=== PATIENT | male | born 1980 | race Caucasian/White ===

== ENCOUNTER 2022-02-08 15:34 | Emergency (ER) | payer OTHER ==
--- OUTSIDE RECORDS SUMMARY | 2022-02-08 15:39 | XMS REPORT | Continuity of Care Document ---
:1980 Author Organization [facility] t Address [address] [place] [address] Care Team Providers Name Role Phone Pcp-None Primary Care Physician Unavailable SANDHYA_ Attending Clinician Unavailable Badcristian Attending Clinician Unavailable Trish James Attending Clinician Unavailable SANDHYA_ Admitting Clinician Unavailable Badar Admitting Clinician Unavailable Payers Payer Name Policy Type Policy Number Effective Date Expiration Date S ource Problems This patient has no known problems. Allergies, Adverse Reactions, Alerts Allergy Allergy Status Severity Reaction(s) Onset Inactive Treating Comm ents Source Name Type Date Date Clinician No Known DA Active U [facility] 02-04 [facility] 00:00: e 00 [facility] Medications This patient has no known medications. Procedures This patient has no known procedures. Encounters Start End Encounter Admission Attending Care Care Encounter Source Date/Time Date/Time Type Type Clinicians Facility Department ID 2020-06-20 Inpatient [facility] [id number] [facility] 04:41:00 [id number] [facility] 2021-11-24 2021-11-24 Outpatient [facility]_ [facility] 549 [id number] [place] 01:56:00 01:56:00 PAT_ [id number] [facility] Results Test Description Test Time Test Comments Results Result [facility] Comments - CT ABD PELVIS 2020-06-20 W/CONT 06:44:00 [facility])Name: LISETH CELAYA : 1980 Sex: M Name: LISETH CELAYA [facility] : 1980 Age/S: 39 / M [address] [facility] Unit #: [id number] [place]: [place] [address] Phys: JibasilMookie Natacha DO Acct: [id number] Dis Date: Status: REG ER PHONE #: [phone] Exam Date: 06/20/202010 FAX #: [phone] Reason: diffuse abd pain EXAMS: CPT CODE: [id number] CT ABD PELVIS W/CONT 73349 CT abdomen and pelvis with IV contrast. Indication: Constipation Location: R16 Comparison: None Technique: CT images of the abdomen and pelvis were obtained from the diaphragm to the pubic symphysis after the administration of intravenous contrast contrast. Coronal reformats are provided. One or more of the following dose reduction techniques were used: Automated exposure control, adjustment of the mA and/or kV according to patient size, and/or utilization of iterative reconstruction technique. Findings: Lungs bases: Unremarkable. Liver: Unremarkable. Gallbladder: Unremarkable. Pancreas: Unremarkable. Spleen: Unremarkable. Adrenal glands: Unremarkable. Kidneys: Unremarkable. Bowel: No bowel obstruction. The appendix is unremarkable.. Constipation is noted with irregular thickening of the rectum, multiple perirectal nodes and presacral nodes are seen measuring up to 1.1 cm. Recommend further evaluation with colonoscopy or PET/CT to exclude the presence of possible neoplasm Peritoneum: No ascites. No free air Skeletal: No acute fracture.. Impression: Constipation is noted with irregular thickening of the rectum, multiple perirectal nodes and presacral nodes are seen measuring up to 1.1 cm. Recommend further evaluation with colonoscopy or PET/CT to exclude the presence of possible neoplasm Additional findings as detailed above PAGE 1 Signed Report (CONTINUED) Name[facility] 1980 Age/S: 39 / M [facility] Unit #: [id number] Loc: [place] [address] Phys: Mookie Santo DO Acct: [id number] Dis Date: Status: REG ER PHONE #: [phone] Exam Date: 06/20/2020 0610 FAX #: [phone] Reason: diffuse abd pain EXAMS: CPT CODE: [id number] CT ABD PELVIS W/CONT 88814 <Continued> at 0644 Reported and signed by: Charissa Eagle M.D. CC: Mookie Santo DO Technologist:MAGAN YANEZ CTDI: DLP: Trnscb Date/Time: 06/20/2020 (0644) [email or web address] Orig Print D/T: S: 06/20/2020 (0647) PAGE 2 Signed Report CBC W/O DIFF 2020-06-20 06:08:00 Test Item Value Reference Range Interpretation Comme nts WHITE BLOOD CELL (test code = WBC) 6.1 K/mm3 4.5-12.5 N RED BLOOD CELL (test code = RBC) 4.52 mill/mm3 4.0-5.8 N HEMOGLOBIN (test code = HGB) 13.6 gram/dL 13.0-17.5 N HEMATOCRIT (test code = HCT) 39.9 % 42.0-52.0 L MEAN CELL VOLUME (test code = MCV) 88.3 fL 80-98 N MEAN CELL HGB (test code = MCH) 30.1 picogram 27.0-33.0 N MEAN CELL HGB CONCETRATION (test code = MCHC) 34.1 gram/dL 33.0-36. 0 N RED CELL DISTRIBUTION WIDTH (test code = RDW) 13.3 % 11.6-16. 2 N PLATELET COUNT (test code = PLT) 337 K/mm3 150-450 N MEAN PLATELET VOLUME (test code = MPV) 9.7 fL 6.7-11.0 N [id number] 06:08:00 Test Item Value Reference Range Interpretation Comments LIPASE (test code = LIP) 62 U/L 73.0-393.0 L BASIC METABOLIC [id number] 06:08:00 Test Item Value Reference Range Interpretation Comments SODIUM (test code = 138 mmol/L 136-145 N NA) POTASSIUM (test code 3.7 mmol/L 3.5-5.1 N = K) CHLORIDE (test code = 103.0 mmol/L 98-107 N CL) CARBON DIOXIDE (test 29.0 mmol/L 21-32 N code = CO2) ANION GAP (test code 9.7 10-20 L = GAP) GLUCOSE (test code = 88 mg/dL 74-106 N GLU) BLOOD UREA NITROGEN 11 mg/dL 7-18 N (test code = BUN) GLOMERULAR FILTRATION > 60 mL/min >=60 Estima kristina GFR by RATE (test code = using Jose fied MDRD GFR) formula.Chronic kidney disease is defined as eith er kidney damageor GFR <60 mL/min/1.73 m2 for >3 months. CREATININE (test code 0.90 mg/dL 0.7-1.3 N = CREAT) BUN/CREATININE RATIO 12.2 10-20 N (test code = BUN/CREA) CALCIUM (test code = 8.9 mg/dL 8.5-10.1 N CA) HEPATIC FUNCTION [id number] 06:08:00 Test Item Value Reference Range Interpretation Comments TOTAL PROTEIN (test 7.0 gram/dL 6.4-8.2 N code = PROT) ALBUMIN (test code = 3.7 g/dL 3.4-5.0 N ALB) GLOBULIN (test code = 3.3 gram/dL 2.7-4.2 N GLOB) ALBUMIN/GLOBULIN RATIO 1.1 0.75-1.50 N (test code = A/G) BILIRUBIN TOTAL (test 0.70 mg/dL 0.0-1.0 N code = BILT) BILIRUBIN DIRECT (test 0.23 mg/dL 0.0-0.20 H code = BILD) SGOT/AST (test code = 16 IUnit/L 15-37 N AST) SGPT/ALT (test code = 17 IUnit/L 12-78 N ALT) ALKALINE PHOSPHATASE 83 IUnit/L 45-117 N Note change in TOTAL (test code = reference range due ALKP) to change in reagent. BASIC METABOLIC [id number] 05:57:00 Test Item Value Reference Range Interpretation Comments SODIUM (test code = NA) 138 mmol/L 136-145 N POTASSIUM (test code = K) 3.7 mmol/L 3.5-5.1 N CHLORIDE (test code = CL) 103.0 mmol/L 98-107 N CARBON DIOXIDE (test code = CO2) mmol/L 21-32 ANION GAP (test code = GAP) 10-20 GLUCOSE (test code = GLU) mg/dL 74-106 BLOOD UREA NITROGEN (test code = mg/dL 7-18 BUN) GLOMERULAR FILTRATION RATE (test mL/min >=60 code = GFR) CREATININE (test code = CREAT) mg/dL 0.7-1.3 BUN/CREATININE RATIO (test code 1020 = BUN/CREA) CALCIUM (test code = CA) mg/dL 8.5-10.1 HEPATIC FUNCTION [id number] 05:57:00 Test Item Value Reference Range Interpretation Comments TOTAL PROTEIN (test code = PROT) gram/dL 6.4-8.2 ALBUMIN (test code = ALB) g/dL 3.4-5.0 GLOBULIN (test code = GLOB) gram/dL 2.7-4.2 ALBUMIN/GLOBULIN RATIO (test code = 0.75-1.50 A/G) BILIRUBIN TOTAL (test code = BILT) mg/dL 0.0-1.0 BILIRUBIN DIRECT (test code = BILD) mg/dL 0.0-0.20 SGOT/AST (test code = AST) IUnit/L 15-37 SGPT/ALT (test code = ALT) IUnit/L 12-78 ALKALINE PHOSPHATASE TOTAL (test IUnit/L 45-117 code = ALKP) [id number] 05:57:00 Test Item Value Reference Range Interpretation Comments LIPASE (test code = LIP) U/L 73.0-393.0 EKG ED Electrocardiogram [facility] [address] [place] [address] Patient Name: Liseth Celaya Medical Record#: [id number] Address: [address] [place] [address] City/State/Zip: [place] [address]: Jono Jones MD Insurance: Self Pay /Age/Sex: 1980/41/M Admit/Reg Date: 09/17/[address]: Jono Jones MD Location: [address] PCP: Md SUNITA Magdaleno Date of Service: 09/17/21 Order (s): EKG ED Electrocardiogram CPT Code: 01880 Report Number: [id number] for Exam: SOB Sinus rhythm Low voltage, precordial leads Summary: Otherwise Normal ECG R06.02 Dictated By: Emerson Qeuzada MD 09/17/21 1808 Signed By: Emerson Quezada MD09/18/21 1741 TD/TT: 09/17/21 180 Tech: [facility] cc: [facility]; PCPNO* Md SUNITA Magdaleno; Jono Jones MD EKG ED Electrocardiogram [address] [id number] Patient Name: Liseth Celaya Medical Record#: [id number] Address: Unknown City/State/Zip: [place] [address]: Jono Jones MD Insurance: Self Pay /Age/Sex: 1980/41/M Admit/Reg Date: 09/17/[address]: Alirio James MD Location:[place] [address] PCP: Md SUNITA Magdaleno Date of Service: 09/17/21 Order (s): EKG ED Electrocardiogram CPT Code: 52723 Report Number: [id number] Reason for Exam: sob Sinus tachycardia Anteroseptal infarct, age indeterminate Summary: Abnormal ECG R00.0 Dictated By: Emerson Quezada MD 09/17/21 0813 Signed By: Emerson Quezada MD 09/17/21 1355 TD/TT: 09/17/21 0813 Tech: [id number] cc: PCPNO; [email or web address]* Alirio James MD; Pcp-Md SUNITA Angulo XR chest 1V [facility] [address] [place] [address] Patient Name: Liseth Celaya Medical Record#: [id number] Address: City/State/Zip: Attending Dr: Alirio James MD Phone: Insurance: Self Pay /Age/Sex: 1980/41/M Admit/Reg Date: 09/17/[address]: Alirio James MD Location: [facility]/ PCP: Date of Service: 09/17/21 Order (s): XR chest 1V CPT Code: 95149 Report Number: [id number] Reason for Exam:Shortness of Breath LOCATION: R16 CHEST 1 VIEW INDICATION: Dyspnea COMPARISON: None FINDINGS: Large patchy airspace infiltrates seen throughout the left lung. The right lung is clear. No pleural effusion or pneumothorax. The cardiomediastinal silhouette is unremarkable. The bony thorax is intact. IMPRESSION: Extensive airspace infiltrates throughout left lung. Initial consideration is for unilateral pneumonia. Cannot excl ude other underlying process. Consider CT when feasible. Electronically signed by: Alanna Garland MD 09/17/2021 7:50 AM [facility] Dictated By: Alanna Olmos MD 09/17/2140 Signed By: Alanna Olmos MD 09/17/21 0740 TD/TT: 09/17/21 0740 Tech: [id number] cc: [email or web address]* Alirio James MD
[2022-02-08] MEDS ORDERED: ACETAMINOPHEN 500 MG TAB ONE (16:26)
--- NOTE | 2022-02-08 16:40 | RAD REPORT ---
EXAM DESCRIPTION: RAD - Chest Pa And Lat (2 Views) - 02/08/2022 4:34 pm CLINICAL HISTORY: COUGH Chest pain. COMPARISON: No comparisons FINDINGS: The lungs are grossly clear. The heart is normal in size. No displaced fractures. IMPRESSION: No acute or concerning finding suspected.
--- NOTE | 2022-02-08 18:10 | ER ---
Nurse's Notes [facility] Name: Irwin Valencia Jr Age: 41 yrs Sex: Male : 1980 Arrival Date: 02/08/2022 Time: 15:38 Bed Waiting Private MD: Diagnosis: Cutaneous abscess of head [any part, except face]-scalp;Acute upper respiratory infection, unspecified Presentation: 02/08 16:09 Chief complaint: Patient states: cough, congestion, runny nose, sneezing and sore vg1 throat x4 days. Also states has two abscesses on the back of head and causing a headache. Coronavirus screen: Vaccine status: Patient reports receiving the 2nd dose of the covid vaccine. Client denies travel out of the [place] in the last 14 days. Ebola Screen: Patient denies exposure to infectious person. Patient denies travel to an Ebola-affected area in the 21 days before illness onset. Initial Sepsis Screen: Does the patient meet any 2 criteria? No. Patient's initial sepsis screen is negative. Does the patient have a suspected source of infection? No. Patient's initial sepsis screen is negative. Risk Assessment: Do you want to hurt yourself or someone else? Patient reports no desire to harm self or others. Onset of symptoms was February 04, 2022. 16:09 Method Of Arrival: Ambulatory vg1 16:09 Acuity: MADELINE 4 vg1 Triage Assessment: 16:13 General: Appears uncomfortable, Behavior is calm, cooperative. Pain: Complains of pain vg1 in back and abdomen and head Pain currently is 10 out of 10 on a pain scale. Respiratory: Reports cough that is productive, Airway is patent Respiratory effort is even, unlabored. Historical: - Allergies: 16:13 No Known Allergies; vg1 - Home Meds: 16:13 None [Active]; vg1 - PMHx: 16:13 None; vg1 - PSHx: 16:13 None; vg1 - Immunization history:: Client reports receiving the 2nd dose of the Covid vaccine. - Social history:: Smoking status: Patient reports the use of cigarette tobacco products, smokes one-half pack cigarettes per day, Reported history of juuling and/or vaping. Screenin:36 Abuse screen: Denies threats or abuse. Nutritional screening: No deficits noted. vg1 Tuberculosis screening: No symptoms or risk factors identified. Fall Risk None identified. Vital Signs: 16:09 BP 135 / 93; Pulse 113; Resp 18; Temp 99.0(O); Pulse Ox 97% on R/A; Weight 79.38 kg; vg1 Height 5 ft. 8 in. (172.72 cm); Pain 10/10; 16:09 Body Mass Index 26.61 (79.38 kg, 172.72 cm) vg1 ED Course: 15:38 Patient arrived in ED. rg4 16:13 Triage completed. vg1 16:13 Arm band placed on. vg1 16:20 Edison Oquendo NP is PHCP. pm1 16:20 Romie Rivero MD is Attending Physician. pm1 16:35 Chest Pa And Lat (2 Views) XRAY In Process Unspecified. EDMS 18:36 Patient has correct armband on for positive identification. vg1 18:36 No provider procedures requiring assistance completed. Patient did not have IV access vg1 during this emergency room visit. Administered Medications: 16:22 Drug: Tylenol 1000 mg Route: PO; vg1 18:37 Follow up: Response: No adverse reaction; Marked relief of symptoms vg1 Medication: 18:37 VIS not applicable for this client. vg1 Outcome: 18:09 Discharge ordered by . pm1 18:36 Discharged to home ambulatory. vg1 18:36 Condition: good 18:36 Discharge instructions given to patient, Instructed on discharge instructions, follow up and referral plans. medication usage, Demonstrated understanding of instructions, follow-up care, medications, Prescriptions given X 2. 18:37 Patient left the ED. vg1 Signatures: Dispatcher [employer] EDCO Edison Oquendo NP CABINETMAKER APPRENTICE pm1 Joan Huang rg4 Ольга Huang, RN RN vg1
--- NOTE | 2022-02-08 18:10 | EDPHYS ---
Physician Documentation [facility] Name: Iwrin Valencia Jr Age: 41 yrs Sex: Male : 1980 Arrival Date: 02/08/2022 Time: 15:38 Bed Waiting Private MD: ED Physician Romie Rivero HPI: 02/08 18:07 This 41 yrs old Male presents to ER via Ambulatory with complaints of Abscess, pm1 Congestion, Cough. 18:07 The patient presents with an abscess of the right base of the skull. Description: pm1 raised. Possible cause(s): unknown. Associated signs and symptoms: Pertinent negatives: fever. Modifying factors: the symptoms are alleviated by nothing, the symptoms are aggravated by touching, And scratching. Severity of symptoms: in the emergency department the symptoms are actually worse. The patient has not experienced similar symptoms in the past. The patient has not recently seen a physician. Patient is also presenting with cough and congestion for the past 4 days. Historical: - Allergies: 16:13 No Known Allergies; vg1 - Home Meds: 16:13 None [Active]; vg1 - PMHx: 16:13 None; vg1 - PSHx: 16:13 None; vg1 - Immunization history:: Client reports receiving the 2nd dose of the Covid vaccine. - Social history:: Smoking status: Patient reports the use of cigarette tobacco products, smokes one-half pack cigarettes per day, Reported history of juuling and/or vaping. ROS: 18:07 Constitutional: Negative for fever, chills, and weight loss. pm1 18:07 Cardiovascular: Negative for chest pain, palpitations, and edema. 18:07 Abdomen/GI: Negative for abdominal pain, nausea, vomiting, diarrhea, and constipation, Back: Negative for injury and pain, MS/Extremity: Negative for injury and deformity. 18:07 ENT: Positive for sinus congestion, Negative for ear pain. 18:07 Respiratory: Positive for cough, Negative for shortness of breath. 18:07 Skin: Positive for abscess, of the Scalp. 18:07 All other systems are negative. Exam: 18:07 Constitutional: This is a well developed, well nourished patient who is awake, alert, pm1 and in no acute distress. Head/Face: Normocephalic, atraumatic. 18:07 ENT: Exam is negative for acute changes, Mouth: no acute changes, Lips: normal, moist, Oral mucosa: normal, pink and intact, moist. 18:07 Cardiovascular: Exam negative for acute changes, Rate: normal, Rhythm: regular, Pulses: no pulse deficits are appreciated. 18:07 Respiratory: Exam negative for acute changes, respiratory distress, shortness of breath. 18:07 Skin: cellulitis, is not appreciated, Nickel sized phlegmon present to right scalp at the base of the skull. No signs of fluctuance, drainage, surrounding cellulitis. 18:07 Neuro: Exam negative for acute changes, Orientation: is normal, Mentation: is normal, Motor: is normal, moves all fours. Vital Signs: 16:09 BP 135 / 93; Pulse 113; Resp 18; Temp 99.0(O); Pulse Ox 97% on R/A; Weight 79.38 kg; vg1 Height 5 ft. 8 in. (172.72 cm); Pain 10/10; 16:09 Body Mass Index 26.61 (79.38 kg, 172.72 cm) vg1 MDM: 16:22 Patient medically screened. pm1 18:07 Data reviewed: vital signs. Data interpreted: Pulse oximetry: on room air is 97 %. pm1 Interpretation: normal. Counseling: I had a detailed discussion with the patient and/or guardian regarding: the historical points, exam findings, and any diagnostic results supporting the discharge/admit diagnosis, the need for outpatient follow up, a family practitioner, to return to the emergency department if symptoms worsen or persist or if there are any questions or concerns that arise at home. 18:10 ED course: PMP[place] reviewed. pm1 02/08 16:15 Order name: SARS-COV-2 RT PCR (Document "Date of Onset" if Symptomatic); Complete Time: vg1 17:52 02/08 16:15 Order name: Flu; Complete Time: 17:52 vg1 02/08 16:15 Order name: Strep; Complete Time: 17:52 vg1 02/08 16:15 Order name: Chest Pa And Lat (2 Views) XRAY; Complete Time: 16:48 vg1 02/08 17:12 Order name: Throat Culture EDMS Administered Medications: 16:22 Drug: Tylenol 1000 mg Route: PO; vg1 18:37 Follow up: Response: No adverse reaction; Marked relief of symptoms vg1 Disposition: 19:05 Co-signature as Attending Physician, Romie Rivero MD. rn Disposition Summary: 02/08/22 18:09 Discharge Ordered Location: Home pm1 Problem: new pm1 Symptoms: have improved pm1 Condition: Stable pm1 Diagnosis - Cutaneous abscess of head [any part, except face] - scalp pm1 - Acute upper respiratory infection, unspecified pm1 Followup: pm1 - With: Emergency Department - When: As needed - Reason: Worsening of condition Followup: pm1 - With: Private Physician - When: 2 - 3 days - Reason: Recheck today's complaints, Continuance of care, Re-evaluation by your physician Discharge Instructions: - Discharge Summary Sheet pm1 - Skin Abscess pm1 - Upper Respiratory Infection, Adult pm1 Forms: - Medication Reconciliation Form pm1 - Thank You Letter pm1 - Antibiotic Education pm1 - Prescription Opioid Use pm1 Prescriptions: - Tramadol 50 mg Oral Tablet - take 1 tablet by ORAL route every 8 hours as needed; 12 tablet; Refills: 0, pm1 Product Selection Permitted - Bactrim DS 800-160 mg Oral Tablet - take 1 tablet by ORAL route every 12 hours for 10 days; 20 tablet; Refills: 0, pm1 Product Selection Permitted Signatures: Dispatcher [employer] EDMS Romie Rivero MD MD rn Marinas, Patrick, NP LEAD CARE MANAGER pm1 Ольга Huang, RN RN vg1
[2022-02-08 18:56] VITALS: BP 135/93; TEMP 99; O2SAT 97
== END 2022-02-08 18:37 | disposition home or self-care (01) ==
LOC: ER 15:34
DX: L02.811 Cutaneous abscess of head [any part, except face] (principal); J06.9 Acute upper respiratory infection, unspecified; Z20.822 Contact with and (suspected) exposure to COVID-19
CPT/HCPCS: 87070; 87081; 87804 ×2; 71046; 99283; U0003